=== PATIENT | female | born 1990 | race Caucasian/White ===

== ENCOUNTER 2017-07-04 15:48 | Day surgery (SDC) | payer OTHER ==
[~2017-07-04 15:48] MED LIST: LACTATED RINGER'S 1,000 ML IV*
[2017-07-04] MEDS ORDERED: PROPOFOL 20 ML (17:40)
[2017-07-04] MEDS ORDERED: MIDAZOLAM 1 MG/ML 2 ML INJ (17:40)
[2017-07-04] MEDS ORDERED: FENTAnyl 50 MCG/ML VIAL (17:40)
[2017-07-04] MEDS ORDERED: EPHEDrine SULFATE 50 MG/5 ML SYG IV (18:00)
[2017-07-04] MEDS ORDERED: hydrALAzine 20 MG INJ IV (18:00)
[2017-07-04] MEDS ORDERED: HYDROmorphONE (0.2 MG/ML) 10ML SYG IV ×3 (18:00)
[2017-07-04] MEDS ORDERED: LABETALOL HCL 20MG INJ IV (18:00)
[2017-07-04] MEDS ORDERED: OXYCODONE/ACETAMINOPHEN (5/325) TAB PO ×2 (18:00)
[2017-07-04] MEDS ORDERED: METOCLOPRAMIDE 10 MG INJ IV (18:00)
[2017-07-04] MEDS ORDERED: DIPHENHYDRAMINE 50 MG INJ IV (18:00)
[2017-07-04] MEDS ORDERED: ONDANSETRON 4 MG INJ IV (18:00)
[2017-07-04] MEDS ORDERED: FENTAnyl 50 MCG/ML VIAL IV ×3 (18:00)
[2017-07-04] MEDS ORDERED: MEPERIDINE 25 MG INJ IV (18:00)
[2017-07-04] MEDS ORDERED: DEXAMETHASONE 4 MG/ML 1 ML INJ (18:19)
[2017-07-04] MEDS ORDERED: ONDANSETRON 4 MG INJ (18:19)
[2017-07-04] MEDS ORDERED: METOCLOPRAMIDE 10 MG INJ (18:19)
[2017-07-04] MEDS ORDERED: KETOROLAC 30 MG INJ (18:20)
[2017-07-04] MEDS ORDERED: CEFAZOLIN 1 GM INJ (18:21)
[2017-07-04] MEDS ORDERED: ACETAMINOPHEN 1000MG/100ML IV 100 ML (18:21)
[2017-07-04] MEDS: BUPIVACAINE 0.5% (SDV) 30 ML INJ (18:24)
== END 2017-07-04 19:56 | disposition home or self-care (01) ==
LOC: SDS 15:48
DX: M67.441 Ganglion, right hand (principal); M65.841 Other synovitis and tenosynovitis, right hand
CPT/HCPCS: 26160; 88307